=== PATIENT | female | born 1975 | race American Indian/Alaskan Native ===

== ENCOUNTER 2017-04-29 15:52 | Inpatient (IN) | payer MEDICARE ==
[2017-04-29 16:17] LABS: Hematocrit 40.2 % (30.3-42.9); Hemoglobin 13.9 gm/dl (10.1-14.3); Mean Corpuscular HGB Conc 35 % (30-34); Mean Corpuscular Hemoglobin 32 pg (28-32); Mean Corpuscular Volume 93 fl (79-97); Platelet Count 210 K/mm3 (140-440); Red Blood Count 4.35 M/mm3 (3.65-5.03); Red Cell Distribution Width 12.8 % (13.2-15.2)
[2017-04-29 16:32] LABS: Calcium 10.1 mg/dL (8.4-10.2)
--- NOTE | 2017-04-29 16:39 | XRay Report ---
FINAL REPORT PROCEDURE: XR CHEST ROUTINE 2V TECHNIQUE: PA and lateral chest radiographs were obtained. CPT 54129 HISTORY: Dyspnea COMPARISON: No prior studies are available for comparison. FINDINGS: Heart: Normal. Mediastinum/Vessels: Normal. Lungs/Pleural space: Normal. Bony thorax: No acute osseous abnormality. Other: Nipple shadow artifacts seen overlying the lower 3rd of the lung lucas. IMPRESSION: Negative examination.
[2017-04-29 17:26] LABS: Basophils % (Manual) 0 % (0.0-1.8); Eosinophils % (Manual) 0 % (0.0-4.3); Total Cells Counted 100
[2017-04-29 17:27] LABS: Anisocytosis Few
[2017-04-29 19:48] LABS: HCG Qualitative,Urine Negative (Negative)
[2017-04-29 19:53] LABS: Bilirubin,Urine NEG (Negative); Blood,Urine NEG (Negative); Color,Urine Yellow (Yellow); Urobilinogen,Urine < 2.0 mg/dL (<2.0)
[2017-04-29] MEDS ORDERED: PEPCID PO ONE (19:55)
[2017-04-29] MEDS ORDERED: ULTRAM PO ONE (19:55)
[2017-04-29] MEDS ORDERED: ALUM-MAG HYDROX-SIMETH 200-200-20MG/5ML PO ONE (19:55)
[2017-04-29] MEDS ORDERED: NACL 0.9% 1000 ML 1,000 ML IV ONE (20:45)
[2017-04-29] MEDS ORDERED: D50W (25GM) Syringe IV ONE (20:46)
[2017-04-29] MEDS ORDERED: HumuLIN R IV ONE (20:46)
[2017-04-29] MEDS: KIONEX PO ONE ×2 (21:26→22:21)
[2017-04-29] MEDS ORDERED: NORCO 5/325 ONE (23:27)
[2017-04-29] MEDS ORDERED: NORCO 5/325 PO ONE (23:34)
--- NOTE | 2017-04-30 00:38 | Ultrasound Report ---
FINAL REPORT PROCEDURE: US ABDOMEN LIMITED TECHNIQUE: Real-time sonography was performed of the right upper quadrant with image documentation. CPT 52247 HISTORY: epigastric pain COMPARISON: No prior studies are available for comparison. FINDINGS: Examination of the right upper quadrant shows the gallbladder is partially contracted which decreases the sensitivity in detecting small gallstones. Gallbladder however shows no focal abnormalities.. No evidence of gallstones or gallbladder wall thickening. Common bile duct is normal caliber measuring 1.9 millimeters. The intrahepatic ducts do not appear to be distended. No ascites is seen.. Liver echogenicity appears normal. No focal abnormality are identified. Right kidney is unremarkable measuring 10 centimeters greatest length. Visualized portion of the pancreas appears normal, the entire pancreas is not visualized. IMPRESSION: Negative exam. No focal abnormalities are identified.
[2017-04-30] MEDS ORDERED: NACL 0.9% 1000 ML 1,000 ML IV ONE (01:09)
[2017-04-30] MEDS ORDERED: TORADOL IV ONE (01:09)
--- NOTE | 2017-04-30 01:31 | Emergency Department Report ---
ED Abdominal Pain HPI - General Chief Complaint: Dyspnea/Respdistress Stated Complaint: HEAD/CHEST PAIN Time Seen by Provider: 04/29/17 19:54 Source: patient Mode of arrival: Ambulatory Limitations: No Limitations - History of Present Illness Initial Comments: Patient is a 42-year-old female who is presenting with several weeks of epigastric pain nausea vomiting. Patient states she also has a headache as well that is generalized and throbbing. Patient states headaches been present for approximately 2 days. Patient states the abdominal pain is epigastric worse when she eats. Patient states it's 8 out of 10 in severity associated with nausea. Patient denies any fevers chills cough congestion at this time. Severity scale (0 -10): 8 Quality: cramping, aching Worsens With: eating Associated Symptoms: nausea, vomiting. denies: diarrhea, fever, dysuria, hematemesis, hematochezia - Related Data Allergies Allergy/AdvReac Type Severity Reaction Status Date / Time No Known Allergies Allergy Unverified 04/29/17 16:03 ED Review of Systems ROS: Stated complaint: HEAD/CHEST PAIN Other details as noted in HPI Comment: All other systems reviewed and negative ED Past Medical Hx - Past Medical History Previous Medical History?: Yes Additional medical history: chronic back pain - Surgical History Past Surgical History?: No - Social History Smoking Status: Current Every Day Smoker Substance Use Type: None ED Physical Exam - General Limitations: No Limitations General appearance: alert, in distress - Head Head exam: Present: atraumatic, normocephalic - Eye Eye exam: Present: normal appearance - ENT ENT exam: Present: mucous membranes moist - Neck Neck exam: Present: normal inspection - Respiratory Respiratory exam: Present: normal lung sounds bilaterally. Absent: respiratory distress, wheezes, rales - Cardiovascular Cardiovascular Exam: Present: regular rate, normal rhythm. Absent: systolic murmur, diastolic murmur, rubs, gallop - GI/Abdominal GI/Abdominal exam: Present: soft, tenderness (epigastric), normal bowel sounds. Absent: distended, guarding, rebound - Extremities Exam Extremities exam: Present: normal inspection - Back Exam Back exam: Present: normal inspection - Neurological Exam Neurological exam: Present: alert, oriented X3 - Psychiatric Psychiatric exam: Present: normal affect, normal mood - Skin Skin exam: Present: warm, dry, intact, normal color. Absent: rash ED Course Vital Signs 04/29/17 04/29/17 04/29/17 15:57 20:54 21:00 Temperature 98.7 F Pulse Rate 102 H Respiratory Rate Blood Pressure 108/77 95/75 O2 Sat by Pulse 99 100 98 Oximetry 04/29/17 04/29/17 04/29/17 21:49 22:00 22:15 Temperature Pulse Rate 91 H 91 H 97 H Respiratory 28 H 18 16 Rate Blood Pressure 121/80 101/65 95/62 O2 Sat by Pulse 97 100 100 Oximetry 04/29/17 04/29/17 22:30 22:45 Temperature Pulse Rate 97 H 103 H Respiratory 14 14 Rate Blood Pressure 96/64 96/64 O2 Sat by Pulse 100 Oximetry ED Medical Decision Making - Lab Data Result diagrams: 04/29/17 16:09 04/29/17 20:01 Lab Results 04/29/17 04/29/17 04/29/17 Range/Units 16:09 16:09 19:37 WBC 3.4 L (4.5-11.0) K/mm3 RBC 4.35 (3.65-5.03) M/mm3 Hgb 13.9 (10.1-14.3) gm/dl Hct 40.2 (30.3-42.9) % MCV 93 (79-97) fl MCH 32 (28-32) pg MCHC 35 H (30-34) % RDW 12.8 L (13.2-15.2) % Plt Count 210 (140-440) K/mm3 Carter % (Auto) Podiatric Assistant Add Manual Diff Complete Total Counted 100 Seg Neuts % (Manual) 48.0 (40.0-70.0) % Band Neutrophils % 0 % Lymphocytes % (Manual) 28.0 (13.4-35.0) % Reactive Lymphs % (Man) 2.0 % Monocytes % (Manual) 22.0 H (0.0-7.3) % Eosinophils % (Manual) 0 (0.0-4.3) % Basophils % (Manual) 0 (0.0-1.8) % Metamyelocytes % 0 % Myelocytes % 0 % Promyelocytes % 0 % Blast Cells % 0 % Nucleated RBC % Not Reportable Seg Neutrophils # Man 1.6 L (1.8-7.7) K/mm3 Band Neutrophils # 0.0 K/mm3 Lymphocytes # (Manual) 1.0 L (1.2-5.4) K/mm3 Abs React Lymphs (Man) 0.1 K/mm3 Monocytes # (Manual) 0.7 (0.0-0.8) K/mm3 Eosinophils # (Manual) 0.0 (0.0-0.4) K/mm3 Basophils # (Manual) 0.0 (0.0-0.1) K/mm3 Metamyelocytes # 0.0 K/mm3 Myelocytes # 0.0 K/mm3 Promyelocytes # 0.0 K/mm3 Blast Cells # 0.0 K/mm3 WBC Morphology Not Reportable Hypersegmented Neuts Not Reportable Hyposegmented Neuts Not Reportable Hypogranular Neuts Not Reportable Smudge Cells Not Reportable Toxic Granulation Not Reportable Toxic Vacuolation Not Reportable Dohle Bodies Not Reportable Pelger-Huet Anomaly Not Reportable Lupe Rods Not Reportable Platelet Estimate Appears normal Clumped Platelets Not Reportable Plt Clumps, EDTA Not Reportable Large Platelets Not Reportable Giant Platelets Not Reportable Platelet Satelliting Not Reportable Plt Morphology Comment Not Reportable RBC Morphology Not Reportable Dimorphic RBCs Not Reportable Polychromasia Not Reportable Hypochromasia Not Reportable Poikilocytosis Not Reportable Anisocytosis Few Microcytosis Not Reportable Macrocytosis Not Reportable Spherocytes Not Reportable Pappenheimer Bodies Not Reportable Sickle Cells Not Reportable Target Cells Not Reportable Tear Drop Cells Not Reportable Ovalocytes Not Reportable Helmet Cells Not Reportable Butler-[place] Bodies Not Reportable [place] Rings Not Reportable [place] Cells Not Reportable Bite Cells Not Reportable Crenated Cell Not Reportable Elliptocytes Not Reportable Acanthocytes (Spur) Not Reportable Rouleaux Not Reportable Hemoglobin C Crystals Not Reportable Schistocytes Not Reportable Malaria parasites Not Reportable Vito Bodies Not Reportable Hem Pathologist Commnt No Sodium 136 L (137-145) mmol/L Potassium 5.1 H (3.6-5.0) mmol/L Chloride 93.7 L (98-107) mmol/L Carbon Dioxide 30 (22-30) mmol/L Anion Gap 17 mmol/L BUN 25 H (7-17) mg/dL Creatinine 1.8 H (0.7-1.2) mg/dL Estimated GFR 37 ml/min BUN/Creatinine Ratio 14 % Glucose 101 H (65-100) mg/dL Calcium 10.1 (8.4-10.2) mg/dL Lipase (13-60) units/L Urine Color Yellow (Yellow) Urine Turbidity Clear (Clear) Urine pH 5.0 (5.0-7.0) Ur Specific [place] 1.015 (1.003-1.030) Urine Protein 30 mg/dl (Negative) mg/dL Urine Glucose (UA) Neg (Negative) mg/dL Urine Ketones Neg (Negative) mg/dL Urine Blood Neg (Negative) Urine Nitrite Neg (Negative) Ur Reducing Substances Not Reportable Urine Bilirubin Neg (Negative) Urine Ictotest Not Reportable Urine Urobilinogen < 2.0 (<2.0) mg/dL Ur Leukocyte Esterase Neg (Negative) Urine WBC (Auto) 2.0 (0.0-6.0) /HPF Urine RBC (Auto) 3.0 (0.0-6.0) /HPF U Epithel Cells (Auto) 1.0 (0-13.0) /HPF Urine HCG, Qual Negative (Negative) 04/29/17 Range/Units 20:01 WBC (4.5-11.0) K/mm3 RBC (3.65-5.03) M/mm3 Hgb (10.1-14.3) gm/dl Hct (30.3-42.9) % MCV (79-97) fl MCH (28-32) pg MCHC (30-34) % RDW (13.2-15.2) % Plt Count (140-440) K/mm3 Carter % (Auto) Add Manual Diff Total Counted Seg Neuts % (Manual) (40.0-70.0) % Band Neutrophils % % Lymphocytes % (Manual) (13.4-35.0) % Reactive Lymphs % (Man) % Monocytes % (Manual) (0.0-7.3) % Eosinophils % (Manual) (0.0-4.3) % Basophils % (Manual) (0.0-1.8) % Metamyelocytes % % Myelocytes % % Promyelocytes % % Blast Cells % % Nucleated RBC % Seg Neutrophils # Man (1.8-7.7) K/mm3 Band Neutrophils # K/mm3 Lymphocytes # (Manual) (1.2-5.4) K/mm3 Abs React Lymphs (Man) K/mm3 Monocytes # (Manual) (0.0-0.8) K/mm3 Eosinophils # (Manual) (0.0-0.4) K/mm3 Basophils # (Manual) (0.0-0.1) K/mm3 Metamyelocytes # K/mm3 Myelocytes # K/mm3 Promyelocytes # K/mm3 Blast Cells # K/mm3 WBC Morphology Hypersegmented Neuts Hyposegmented Neuts Hypogranular Neuts Smudge Cells Toxic Granulation Toxic Vacuolation Dohle Bodies Pelger-Huet Anomaly Lupe Rods Platelet Estimate Clumped Platelets Plt Clumps, EDTA Large Platelets Giant Platelets Platelet Satelliting Plt Morphology Comment RBC Morphology Dimorphic RBCs Polychromasia Hypochromasia Poikilocytosis Anisocytosis Microcytosis Macrocytosis Spherocytes Pappenheimer Bodies Sickle Cells Target Cells Tear Drop Cells Ovalocytes Helmet Cells Butler-[place]field Bodies Oakley Rings Naveen Cells Bite Cells Crenated Cell Elliptocytes Acanthocytes (Spur) Rouleaux Hemoglobin C Crystals Schistocytes Malaria parasites Vito Bodies Hem Pathologist Commnt Sodium (137-145) mmol/L Potassium 5.5 H (3.6-5.0) mmol/L Chloride (98-107) mmol/L Carbon Dioxide (22-30) mmol/L Anion Gap mmol/L BUN (7-17) mg/dL Creatinine (0.7-1.2) mg/dL Estimated GFR ml/min BUN/Creatinine Ratio % Glucose (65-100) mg/dL Calcium (8.4-10.2) mg/dL Lipase 48 (13-60) units/L Urine Color (Yellow) Urine Turbidity (Clear) Urine pH (5.0-7.0) Ur Specific [place] (1.003-1.030) Urine Protein (Negative) mg/dL Urine Glucose (UA) (Negative) mg/dL Urine Ketones (Negative) mg/dL Urine Blood (Negative) Urine Nitrite (Negative) Ur Reducing Substances Urine Bilirubin (Negative) Urine Ictotest Urine Urobilinogen (<2.0) mg/dL Ur Leukocyte Esterase (Negative) Urine WBC (Auto) (0.0-6.0) /HPF Urine RBC (Auto) (0.0-6.0) /HPF U Epithel Cells (Auto) (0-13.0) /HPF Urine HCG, Qual (Negative) - Radiology Data Radiology results: report reviewed Ultrasound of the abdomen shows no evidence of gallstones - Medical Decision Making Patient is a 42-year-old female who is presenting with epigastric pain and nausea vomiting headache. Patient was noted to have some early renal failure and acute kidney injury and hyperkalemia. Potassium was rechecked twice to ensure that this was correct and it was. Patient was treated for hypokalemia patient was given fluids for the renal failure patient will be admitted to the hospital. Regards to the patient's abdominal pain the patient has a negative ultrasound for gallstones as well as likely represents GERD or gastritis peptic ulcer disease. Patient will be admitted to his time to Dr. Crawley the hospitalist service. Critical care attestation.: If time is entered above; I have spent that time in minutes in the direct care of this critically ill patient, excluding procedure time. ED Disposition Clinical Impression: Acute kidney injury (nontraumatic), Hyperkalemia Gastritis Qualifiers: Gastritis type: unspecified gastritis Chronicity: unspecified Gastritis bleeding: without bleeding Qualified Code(s): K29.70 - Gastritis, unspecified, without bleeding Disposition: OP ADMIT IP TO THIS HOSP Is pt being admited?: Yes Does the pt Need Aspirin: No Condition: Stable Referrals: JOHANA FERRER MD [Primary Care Provider] - 3-5 Days
[2017-04-30] MEDS ORDERED: MORPHINE IV PRN ×2 (02:13→07:00)
[2017-04-30] MEDS ORDERED: ZOFRAN IV PRN (02:13)
[2017-04-30] MEDS ORDERED: SODIUM CHLORIDE FLUSH SYRINGE 10 ML IV PRN (02:13)
[2017-04-30] MEDS ORDERED: MORPHINE ONE (03:16)
[2017-04-30] MEDS: TYLENOL PO PRN ×4 (03:27→21:51)
[2017-04-30] MEDS: NACL 0.9% 1000 ML 1,000 ML IV SCH ×3 (04:59→23:03)
--- NOTE | 2017-04-30 05:06 | History and Physical Report ---
History of Present Illness Date of examination: 04/30/17 Date of admission: 04/30/17 02:13 History of present illness: 42-year-old woman with no medical problems consist emergency room with complaints of epigastric abdominal pain over the last 2 weeks. She complains that is sharp, intermittent in nature lasting for a few seconds, intensity of 4/ 10, no radiation, candidate and exacerbated on filter. Admits to nausea vomiting, no diarrhea. Very little intake over the last 1 week. No fever, chills Review Of Systems: Constitutional: no weight loss Ears, eyes, nose, mouth and throat: no nasal congestion, no nasal discharge, no sinus pressure, blurry vision, diplopia Neck: No neck pain or rigidity. Cardiovascular: no chest pain orthopnea, palpitations Respiratory: No shortness of breath, cough Gastrointestinal: no hematochezia Genitourinary : no dysuria, frequency , hematuria Musculoskeletal: no muscle ache Integumentary: no rash, no pruritis Neurological: no parathesias, focal weakness Endocrine: no cold or heat intolerance, no polyuria or polydipsia Hematologic/Lymphatic: no easy bruising, no easy bleeding, no gland swelling Allergic/Immunologic: no urticaria, no angioedema. PAST MEDICAL HISTORY: None PAST SURGICAL HISTORY: None SOCIAL HISTORY: Smoked or cigarettes a day, social alcohol, no drugs FAMILY HISTORY: Hypertension Medications and Allergies Allergies Allergy/AdvReac Type Severity Reaction Status Date / Time No Known Allergies Allergy Unverified 04/29/17 16:03 Active Meds: Active Medications Acetaminophen (Tylenol) 650 mg PO Q4H PRN PRN Reason: Pain MILD(1-3)/Fever >100.5/KATZ Last Admin: 04/30/17 03:27 Dose: 650 mg Enoxaparin Sodium (Lovenox) 40 mg SUB-Q QDAY BALDEV Sodium Chloride (Nacl 0.9% 1000 Ml) 1,000 mls @ 125 mls/hr IV DIRECT BALDEV Last Admin: 04/30/17 04:59 Dose: 125 mls/hr Morphine Sulfate (Morphine) 2 mg IV Q4H PRN PRN Reason: Pain, Moderate (4-6) Last Admin: 04/30/17 03:26 Dose: 2 mg Ondansetron HCl (Zofran) 4 mg IV Q8H PRN PRN Reason: Nausea And Vomiting Last Admin: 04/30/17 03:28 Dose: 4 mg Sodium Chloride (Sodium Chloride Flush Syringe 10 Ml) 10 ml IV BID BALDEV Sodium Chloride (Sodium Chloride Flush Syringe 10 Ml) 10 ml IV PRN PRN PRN Reason: LINE FLUSH Exam - Physical Exam Narrative exam: Gen. appearance: Patient lying in bed, no apparent distress HEENT: Normocephalic, atraumatic, pupils equally round and reactive to light, extraocular movement intact, and no sclericterus,. No JVD or thyromegaly or nodule,neck supple, no carotid bruit ,mucous membranes moist, no exudate or erythema Heart: S1, S2, regular rate and rhythm Lungs: Clear to auscultation bilaterally, breathing comfortable Abdomen: Positive bowel sounds, nontender, nondistended, no organomegaly Extremity: No edema, cyanosis, clubbing Skin: No rash, nodules, warm, dry Neuro: Oriented 3, cranial nerves II-12 intact, speech is fluent, motor and sensory intact - Constitutional Vitals: Temp Pulse Resp BP Pulse Ox 98.7 F 73 18 92/58 100 04/29/17 15:57 04/30/17 03:15 04/30/17 03:15 04/30/17 03:15 04/30/17 03:15 Results - Labs CBC & Chem 7: 04/29/17 16:09 04/29/17 20:01 Labs: Abnormal lab results 04/29/17 04/29/17 04/29/17 Range/Units 16:09 16:09 20:01 WBC 3.4 L (4.5-11.0) K/mm3 MCHC 35 H (30-34) % RDW 12.8 L (13.2-15.2) % Monocytes % (Manual) 22.0 H (0.0-7.3) % Seg Neutrophils # Man 1.6 L (1.8-7.7) K/mm3 Lymphocytes # (Manual) 1.0 L (1.2-5.4) K/mm3 Sodium 136 L (137-145) mmol/L Potassium 5.1 H 5.5 H (3.6-5.0) mmol/L Chloride 93.7 L (98-107) mmol/L BUN 25 H (7-17) mg/dL Creatinine 1.8 H (0.7-1.2) mg/dL Glucose 101 H (65-100) mg/dL - Imaging and Cardiology US - abdomen: report reviewed Assessment and Plan Assessment Acute renal failure Hyperkalemia Plan Start IV fluids, status post treatment for potassium DVT prophylaxis
[2017-04-30 05:31] LABS: Basophils % (Auto) 0.7 % (0.0-1.8); Eosinophils % (Auto) 0.5 % (0.0-4.3); Hematocrit 35.5 % (30.3-42.9); Hemoglobin 11.9 gm/dl (10.1-14.3); Lymphocytes # (Auto) 0.9 K/mm3 (1.2-5.4); Lymphocytes % (Auto) 32.3 % (13.4-35.0); Mean Corpuscular HGB Conc 34 % (30-34); Mean Corpuscular Hemoglobin 31 pg (28-32); Mean Corpuscular Volume 93 fl (79-97); Monocytes # (Auto) 0.4 K/mm3 (0.0-0.8); Monocytes % (Auto) 14.9 % (0.0-7.3); Platelet Count 165 K/mm3 (140-440); Red Blood Count 3.82 M/mm3 (3.65-5.03); Red Cell Distribution Width 12.8 % (13.2-15.2)
[2017-04-30] MEDS: LOVENOX SUB-Q SCH (10:05)
[2017-04-30] MEDS: SODIUM CHLORIDE FLUSH SYRINGE 10 ML IV SCH ×2 (10:05→21:52)
[2017-04-30] MEDS ORDERED: SUDAFED PO PRN (10:15)
[2017-04-30] MEDS: PROTONIX PO SCH (14:31)
--- NOTE | 2017-04-30 14:55 | Event Note ---
Date: 04/30/17 Pt seen and examined cont to c/o abdominal pain at epigastric region, inability to tolerate oral diet will place on protonix and carafate, also place on levaquin for possible colitis. will cont current Mx and plan as dictated in h and p.
[2017-04-30] MEDS: MORPHINE IV PRN ×2 (15:07→20:49)
[2017-04-30] MEDS ORDERED: LEVAQUIN PO SCH (16:00)
[2017-04-30] MEDS: CARAFATE PO SCH ×2 (18:40→23:03)
[2017-05-01] MEDS: TYLENOL PO PRN ×3 (02:27→12:42)
[2017-05-01 07:01] LABS: Hematocrit 36.5 % (30.3-42.9); Hemoglobin 12.2 gm/dl (10.1-14.3); Mean Corpuscular HGB Conc 33 % (30-34); Mean Corpuscular Hemoglobin 32 pg (28-32); Mean Corpuscular Volume 95 fl (79-97); Platelet Count 159 K/mm3 (140-440); Red Blood Count 3.86 M/mm3 (3.65-5.03); Red Cell Distribution Width 12.7 % (13.2-15.2)
[2017-05-01 07:11] LABS: BUN/Creatinine Ratio 10; Blood Urea Nitrogen 9 mg/dL (7-17); Calcium 8.6 mg/dL (8.4-10.2); Hemolysis Index 1
[2017-05-01] MEDS: CARAFATE PO SCH ×2 (07:25→12:09)
[2017-05-01 08:27] VITALS: BP 115/74
[2017-05-01 08:33] LABS: Band Neutrophils # (Manual) 0.2 K/mm3; Basophils % (Manual) 0 % (0.0-1.8); Eosinophils % (Manual) 0 % (0.0-4.3); Total Cells Counted 100
[2017-05-01 08:34] LABS: RBC Morphology Normal
[2017-05-01] MEDS: SODIUM CHLORIDE FLUSH SYRINGE 10 ML IV SCH (10:17)
[2017-05-01] MEDS: PROTONIX PO SCH (10:18)
[2017-05-01] MEDS: LOVENOX SUB-Q SCH (10:18)
--- NOTE | 2017-05-01 12:42 | Discharge Summary ---
Providers - Providers Date of Admission: 04/30/17 02:13 Date of discharge: 05/01/17 Attending physician: DIANA FRANCES Primary care physician: JOHANA FERRER Hospitalization Condition: Stable Pertinent studies: Chest x-ray, no acute infiltrates Abdominal ultrasound, negative exam, no focal abnormalities are identified. Hospital course: 42-year-old woman with no prior medical problems came to emergency room with complaints of epigastric abdominal pain over the last 2 weeks. She stated that the pain is sharp, intermittent in nature lasting for a few seconds, intensity of 4/10, no radiation, candidate and exacerbated on filter. She also Admited to nausea vomiting, but no diarrhea. Very little intake over the last 1 week. On admission her creatinine noted to be 1.8 with k level 5.5. Patient was admitted at to the medical floor and started on IV fluid hydration. She also evaluated by chest x-ray and abdominal ultrasound which were unremarkable. Her lipase was within normal limits. She was initially started on clear liquid diet and advance as tolerated. She was placed on Protonix and Carafate and also antibiotics for possible gastroenteritis versus colitis. Her symptom improved creatinine and potassium level normalized. She was tolerating diet. She was discharged home in stable condition. Discharge diagnosis: Nausea/vomiting, from gastroenteritis/colitis, resolved Abdominal pain, likely from colitis/gastroenteritis Acute renal failure, vasomotor nephropathy from dehydration due to N/V Hyperkalemia, due to renal failure, resolved Leukopenia, need further outpatient workup SIRS, present on admission, likely due to possible gastroenteritis/colitis Disposition: - TO HOME OR SELFCARE Time spent for discharge: 32 minutes Core Measure Documentation - Palliative Care Palliative Care/ Comfort Measures: Not Applicable - Core Measures Any of the following diagnoses?: none Exam - Constitutional Vitals: Temp Pulse Resp BP Pulse Ox 99.9 F H 65 18 95/54 97 05/01/17 08:19 05/01/17 08:19 05/01/17 10:00 05/01/17 08:19 05/01/17 08:19 General appearance: Present: no acute distress - EENT Eyes: Present: PERRL ENT: hearing intact, clear oral mucosa - Neck Neck: Present: supple, normal ROM - Respiratory Respiratory effort: normal Respiratory: bilateral: CTA - Cardiovascular Heart Sounds: Present: S1 & S2. Absent: rub, click - Extremities Extremities: pulses symmetrical, No edema Peripheral Pulses: within normal limits - Abdominal General gastrointestinal: Present: soft, non-tender, non-distended, normal bowel sounds - Integumentary Integumentary: Present: clear, warm, dry - Musculoskeletal Musculoskeletal: gait normal, strength equal bilaterally - Psychiatric Psychiatric: appropriate mood/affect, intact judgment & insight - Neurologic Neurologic: CNII-XII intact, moves all extremities Plan Activity: advance as tolerated Weight Bearing Status: Weight Bear as Tolerated Diet: other (advance as tolerated) Follow up with: JOHANA FERRER MD [Primary Care Provider] - 3-5 Days Forms: Work/School Release Form Prescriptions: Levofloxacin [Levaquin TAB] 500 mg PO Q24H #7 tablet oxyCODONE /ACETAMINOPHEN [Percocet 5/325] 1 tab PO Q6HR PRN #10 tablet PRN Reason: Pain Pantoprazole [Protonix TAB] 40 mg PO QDAY #30 tablet Sucralfate [Carafate] 1 gm PO Q6HR 7 Days oral.liqd
== END 2017-05-01 14:35 | disposition home or self-care (01) | DRG 391 ==
LOC: ED 15:52 → 3A 04-30 02:13
PROVIDERS: ADMIT Internal Medicine; ATTEND Internal Medicine
DX: K52.9 Noninfective gastroenteritis and colitis, unspecified (principal); N17.0 Acute kidney failure with tubular necrosis; R65.10 Systemic inflammatory response syndrome (SIRS) of non-infectious origin without acute organ dysfunction; E87.5 Hyperkalemia; G89.29 Other chronic pain; M54.9 Dorsalgia, unspecified; F17.200 Nicotine dependence, unspecified, uncomplicated; Z82.49 Family history of ischemic heart disease and other diseases of the circulatory system; E86.0 Dehydration
CPT/HCPCS: 36415; 71046; 76705; 80048; 81001; 81025; 83690; 84132; 85007; 85025; 87086; 93005; 93010; 96361; 96374; 96375; 99406; J1650; J1815; J1885; J2270; J2405; J7030

== ENCOUNTER 2020-09-26 10:38 | Outpatient (CLI) | payer MEDICARE ==
--- NOTE | 2020-10-02 09:07 | Mammography Report ---
DIGITAL SCREENING MAMMOGRAM WITH CAD WITH TOMOSYNTHESIS, 09/26/2020 CLINICAL INFORMATION / INDICATION: Routine screening mammography. TECHNIQUE: Digital bilateral 2D and 3D mammography was obtained in the craniocaudal and mediolateral oblique projections. This examination was interpreted with the benefit of Computer-Aided Detection a nalysis. COMPARISON: 12/26/2014 FINDINGS: Breast Density: The breasts are heterogeneously dense, which may obscure small masses. No dominant mass, suspicious calcifications, or architectural distortion in either breast. IMPRESSION: No mammographic evidence of malignancy. Follow up recommendation: Routine yearly BI-RADS Category 1: Negative. A "normal" or negative report should not discourage follow up or biopsy of a clinically significant f inding. A written summary of these findings will be mailed to the patient. The patient will be entered into a mammography reporting system which will generate a reminder letter for the patient's next appointmen t at the appropriate interval. The [employer] recommends yearly mammograms starting at age 40 and continuing as l craig as a woman is in good health. Breast MRI is recommended for women with an approximate 20-25% or greater lifetime risk of breast cancer, including women with a strong family history of breast or [place] cancer or who have been treated for Hodgkin's disease. Signer Name: Morena Higgins MD Signed: 10/02/2020 9:03 AM Workstation Name: [id number]
== END 2020-09-26 10:39 | disposition home or self-care (01) ==
LOC: SPVWC 10:38
PROVIDERS: ATTEND Advanced Practice Midwife
DX: Z12.31 Encounter for screening mammogram for malignant neoplasm of breast (principal)
CPT/HCPCS: 77063; 77067